=== PATIENT | male | born 1985 | race Caucasian/White ===

== ENCOUNTER 2017-11-20 17:50 | Inpatient (IN) | payer BC, OTHER, SELFPAY ==
[2017-11-20 18:25] VITALS: BP 121/88; PULSE 100; RESP 18; TEMP 36.7; O2SAT 100; BMI 32.7; BMI 32.8
[2017-11-20 19:29] VITALS: BP 124/66; PULSE 101; RESP 16; TEMP 36.7; O2SAT 98
[2017-11-20] MEDS: oxyCODONE 5 MG Tablet PO (20:51)
[2017-11-20] MEDS: Acetaminophen 325 MG Tablet 650 MG PO (21:53)
[2017-11-20] MEDS: DiphenhydrAMINE 12.5 MG/5 ML UDC PO (22:14)
[2017-11-20] MEDS: Chlorhexidine 480 ML 15 ML PO (22:14)
[2017-11-20] MEDS: Gabapentin 100 MG Capsule PO (22:14)
[2017-11-20] MEDS: Methocarbamol 500 MG Tablet 1000 MG PO (22:15)
[2017-11-21] MEDS: oxyCODONE 5 MG Tablet PO ×3 (03:55→17:16)
--- NOTE | 2017-11-21 04:16 | NURSING ---
O2 saturation checked d/t pt report of sleep apnea. O2 at 96%. Pain at 8/10 and Oxyir 5mg PRN provided. Leg repositioned.
[2017-11-21] MEDS: Gabapentin 100 MG Capsule PO ×3 (05:32→20:49)
[2017-11-21] MEDS: Acetaminophen 325 MG Tablet 650 MG PO (05:32)
[2017-11-21] MEDS: DiphenhydrAMINE 12.5 MG/5 ML UDC PO ×2 (05:48→22:07)
--- NOTE | 2017-11-21 05:51 | NURSING ---
pt given liquid benadryl PRN for itching.
[2017-11-21 06:09] LABS: Hematocrit 33.4 % (40-54); Hemoglobin 10.6 g/dl (13.0-16.5); Mean Corp Hgb Conc 31.7 g/gl (32-36); Mean Corpuscular Hgb 30.7 pg (27.0-32.0); Mean Corpuscular Volume 96.8 fL (80-94); Mean Platelet Vol. 9.7 fl (6.2-12.0); Platelet Count 590 K/mm3 (150-450); RBC Distribution Width CV 15.2 % (11.6-14.6); RBC Distribution Width SD 50.7 fl (35.1-43.9); Red Blood Count 3.45 M/mm3 (4.6-6.2); Scan Indicated on CBC? Y/N NO; White Blood Count 11.9 K/mm3 (4.4-11.0)
[2017-11-21 06:32] LABS: Anion Gap 8 (5-15); BUN 16 mg/dL (7-18); BUN/Creat Ratio 26.7 RATIO (10-20); Calcium,Total 9.1 mg/dL (8.5-10.1); Chloride 106 mmol/L (98-107); EST Glomerular Filtration Rate 164 mL/min (>60); Est Glom Filt Rate - Afr Amer 199 mL/min (>60); Estimated Creatinine Clearance 186.51 ml/min; Glucose 104 mg/dL (74-106); Sodium Level 139 mmol/L (136-145)
[2017-11-21] MEDS: Chlorhexidine 480 ML 15 ML PO ×4 (08:36→20:50)
[2017-11-21 08:46] VITALS: BP 140/81; PULSE 104; RESP 18; TEMP 36.6; O2SAT 96
[2017-11-21] MEDS: fentaNYL 25 MCG Patch TRANSDERM. (10:13)
[2017-11-21] MEDS: Enoxaparin 40 MG/0.4 ML Syringe SC (10:15)
[2017-11-21] MEDS: Methocarbamol 500 MG Tablet 1000 MG PO ×4 (10:25→20:51)
[2017-11-21] MEDS: amLODIPine 10 MG Tablet PO (10:25)
[2017-11-21] MEDS: Lisinopril 40 MG Tablet PO (10:25)
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
--- NOTE | 2017-11-21 13:43 | REHABEVAL_ITS ---
Admission Information Status Changes from Prescreening?: No changes Identified Actual Problem List:: Mobility Impaired, Self Care Deficit, BP, Hypertension Potential Problem List:: DVT, Bleeding, Infection, UTI, Aspiration, Falls, Skin Integrity, Depression Risk of Complications DVT: LMWH, LADARIUS Hose, Sequential Compression Device Bleeding: Monitor Lab Values, Nursing to Teach Precautions for anti-coagulation therapy., Wound, if applicable, to be assessed every shift., Stroke patients assessed for lethargy or change in status. Infection: Clinical Staff to Monitor for S/S of infection:, S/S of infection include fever, redness, warmth, etc. Urinary Tract Infection: Monitor for frequency, burning, discomfort, or incontinence., Nursing will obtain urine sample for urinalysis and C&S when ordered. Aspiration: Clinical staff will monitor for coughing, drooling, congestion., Speech will evaluate swallowing and dsyphasia., Nursing will monitor patient swallowing during meals. Falls: Patient will be evaluated for Fall Precautions, Patient will be placed on Fall Precautions as indicated per protocol. Skin Breakdown: Nursing will assess skin daily using assessment tool., Nursing will place on Skin Breakdown Precautions as indicated. Pain: Clinical staff will assess patient's pain level per protocol., Medications will be given, if needed, and the pain level reassessed., Other methods: Massage, distraction, decrease stimulus, etc. used PRN. Plan of Care Patient requires physician specializing in physical medicine and rehab oversight to provide close medical supervision of rehab issues including: Pain Management, Sleep Problems, Bowel and Bladder, Medical and co-morbidity Management, DVT prophylaxis, Rehabilitation Leadership, Coordination of treatment team Patient needs Physical Therapy: For a minimum of 1 hour, At least 5 out of 7 days Patient needs Physical Therapy to improve:: Mobility, Mobility, Mobility, Strengthening, Transfers, Stretching, ROM, Endurance, Stairs, Gait, Balance Patient needs Occupational Therapy: For a minimum of 1 hour, At least 5 out of 7 days Patient needs Occupational Therapy to improve ADL's incl.: Eating, Grooming, Bathing, Dressing, Toileting, Toilet transfers, Community Reintegration, Higher functioning activities, Household tasks, Adaptive Equipment, Splinting, Other activities as determined Patient requires speech therapy: For a minimum of 1 hour, At least 5 out of 7 days Patient requires speech therapy for: Swallowing, Cognition, Language Skills, Compensatory Strategies Patient requires 04/02 Rehabilitation Nursing for: Pain Issues, Identifying and preventing risk factors, Monitoring and reporting current medical conditions, Assisting with ambulation, transfer, and all ADL's, Teaching patients about disease process and medications, Family teaching, Providing safe environment, Bowel and Bladder Issues, Skin integrity, Medication Management Patient needs Certified Substance Abuse Counselor/ Case Management for: Discharge Planning, Arranging Home Equipment or Services, Family Interventions Patient needs Dietary and Nutrition Services for: Adequate Nutrition, Nutritional Supplements, Nutritional Education Goals Patient will remain: free from falls, or injury at time of discharge. Patient will perform bed mobility at: MOD I level of assist. Patient will complete transfers from bed to chair at: MOD I level of assist. Patient will ambulate: 100 feet, with MOD I assist, with LRD Patient will complete upper body dressing at: MOD I level of assist. Patient will complete lower body dressing at: MOD I level of assist. Patient will complete toileting at: MOD I level of assist. Patient will perform bathing at: MOD I level of assist. Patient will complete grooming at: MOD I level of assist. Patient will complete home management skills at: MOD I level of assist. Patient will achieve: 12 stairs, at MOD I assist Patient will have pain level of: of 3 or less Patient's skin will: remain intact, free from infection. Patient will receive: adequate nutrition. Discharge Planning Pt Prognosis for Sig. Practical Improv. w/in Reasonable Time: Good Estimated Length of stay (days): 21 Anticipated D/C Destination: Home with Outpt Therapy
[2017-11-21] MEDS: Acetaminophen 650 MG/20 ML UDC PO ×2 (14:20→20:52)
--- NOTE | 2017-11-21 16:23 | CASEMGMT ---
Social Work Assessment completed with patient in room. Patient presenting with a positive affect as could be seen by patient engaging in conversation with this psych social worker and smiling often. Patient reporting to be and to have 3 children. Patient has been to spouse for 8 years and has 3 daughters that are names, Cheyenne (age 5), Kerrie (age 4) and Ute (3 months). Patent reporting that patient spouse, Ana is a elementary summer school teacher and is currently coming to the end of Ana's [facility] and may need to go back to work for a few weeks until summer break. Patient reporting to be planning to return home with spouse and family at time of discharge and is planning to discharge home at a wheelchair level. Patient reporting to be able to have a ramp set up and then patient would have a space for a bed (probably a hospital bed) and a full bathroom on the first floor. Patient aware that it is undetermined patient current length of stay at this time. Patient educated on insurance process and aware that an update is due on 11/22/17. Support given. Patient declining for this psych social worker to contact patient spouse at this time and reporting to be able to communicate team meeting time and date to patient spouse. Will continue to follow. Adelaida JUNIOR, MASTER DATA ANALYST
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
[2017-11-21 21:00] VITALS: BP 160/84; PULSE 105; RESP 18; TEMP 36.6; O2SAT 98
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
--- NOTE | 2017-11-22 02:57 | NURSING ---
Reviewed and agree with MACHINE TOOL BUILDER documentation and FIMS charting
[2017-11-22] MEDS: oxyCODONE 5 MG Tablet PO ×3 (03:37→23:03)
[2017-11-22] MEDS: Enoxaparin 40 MG/0.4 ML Syringe SC (06:37)
[2017-11-22] MEDS: Gabapentin 100 MG Capsule PO ×3 (06:38→21:05)
[2017-11-22] MEDS: Acetaminophen 650 MG/20 ML UDC PO ×3 (06:38→21:06)
[2017-11-22] MEDS: Chlorhexidine 480 ML 15 ML PO ×4 (07:49→21:05)
[2017-11-22] MEDS: Lisinopril 40 MG Tablet PO (07:49)
[2017-11-22] MEDS: amLODIPine 10 MG Tablet PO (07:49)
[2017-11-22 08:15] VITALS: BP 145/83; PULSE 101; RESP 18; TEMP 36.4; O2SAT 98
[2017-11-22] MEDS: Methocarbamol 500 MG Tablet 1000 MG PO ×4 (11:04→21:06)
--- NOTE | 2017-11-22 11:25 | CASEMGMT ---
Insurance Clinical information faxed. Pending continued stay approval at this time. Auth# waiting to obtain. Adelaida JUNIOR, CLIENT SUCCESS SPECIALIST
[2017-11-22] MEDS: DiphenhydrAMINE 12.5 MG/5 ML UDC PO (21:22)
[2017-11-22 21:57] VITALS: BP 125/72; PULSE 103; RESP 18; TEMP 36.7; O2SAT 99
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
--- NOTE | 2017-11-23 02:15 | NURSING ---
Reviewed and agree with LPNs fims and handoff
[2017-11-23] MEDS: oxyCODONE 5 MG Tablet PO ×3 (03:11→23:32)
[2017-11-23] MEDS: Enoxaparin 40 MG/0.4 ML Syringe SC (06:42)
[2017-11-23] MEDS: Gabapentin 100 MG Capsule PO ×3 (06:42→21:56)
[2017-11-23] MEDS: Acetaminophen 650 MG/20 ML UDC PO ×3 (06:43→21:55)
[2017-11-23 07:28] VITALS: O2SAT 97
[2017-11-23 08:15] VITALS: BP 141/74; PULSE 112; RESP 18; TEMP 36.6; O2SAT 96
[2017-11-23] MEDS: Chlorhexidine 480 ML 15 ML PO ×4 (08:20→21:56)
[2017-11-23] MEDS: amLODIPine 10 MG Tablet PO (08:21)
[2017-11-23] MEDS: Methocarbamol 500 MG Tablet 1000 MG PO ×4 (08:21→21:56)
[2017-11-23] MEDS: Lisinopril 40 MG Tablet PO (08:21)
[2017-11-23] MEDS: Ferrous Sulfate 300 MG/5 ML UDC PO ×2 (08:21→17:18)
[2017-11-23 10:00] VITALS: PULSE 106
[2017-11-23] MEDS: DiphenhydrAMINE 12.5 MG/5 ML UDC PO ×2 (11:11→16:25)
--- NOTE | 2017-11-23 18:35 | NURSING ---
duragesic patch intact to left arm.
[2017-11-23 19:55] VITALS: BP 133/69; PULSE 90; RESP 18; TEMP 36.6; O2SAT 98
[2017-11-24] MEDS: DiphenhydrAMINE 12.5 MG/5 ML UDC PO ×2 (00:36→16:17)
[2017-11-24] MEDS: Acetaminophen 650 MG/20 ML UDC PO ×3 (05:24→21:54)
[2017-11-24] MEDS: oxyCODONE 5 MG Tablet PO ×5 (05:26→23:40)
[2017-11-24] MEDS: Enoxaparin 40 MG/0.4 ML Syringe SC (05:26)
[2017-11-24] MEDS: Gabapentin 100 MG Capsule PO ×3 (05:26→21:55)
[2017-11-24 09:00] VITALS: BP 124/80; PULSE 90; RESP 17; TEMP 36.7; O2SAT 96
[2017-11-24] MEDS: Lisinopril 40 MG Tablet PO (09:06)
[2017-11-24] MEDS: Chlorhexidine 480 ML 15 ML PO ×4 (09:07→21:54)
[2017-11-24] MEDS: amLODIPine 10 MG Tablet PO (09:07)
[2017-11-24] MEDS: Methocarbamol 500 MG Tablet 1000 MG PO ×4 (09:07→21:55)
[2017-11-24] MEDS: Ferrous Sulfate 300 MG/5 ML UDC PO (16:36)
[2017-11-24 19:38] VITALS: BP 112/61; PULSE 105; RESP 12; TEMP 37.1; O2SAT 98
[2017-11-25] MEDS: DiphenhydrAMINE 12.5 MG/5 ML UDC PO ×2 (00:51→09:35)
--- NOTE | 2017-11-25 02:27 | NURSING ---
REVIEWED AND AGREE WITH MUCKER COFFERDAM'S FIM AND HANDOFF CHARTING.
[2017-11-25] MEDS: oxyCODONE 5 MG Tablet PO ×5 (04:16→23:06)
[2017-11-25] MEDS: Enoxaparin 40 MG/0.4 ML Syringe SC (06:15)
[2017-11-25] MEDS: Acetaminophen 650 MG/20 ML UDC PO ×3 (06:15→21:03)
[2017-11-25] MEDS: Gabapentin 100 MG Capsule PO ×3 (06:16→21:03)
[2017-11-25 07:25] VITALS: BP 138/76; PULSE 100; RESP 12; TEMP 36.7; O2SAT 95
[2017-11-25] MEDS: Chlorhexidine 480 ML 15 ML PO ×3 (07:44→17:34)
[2017-11-25] MEDS: Ferrous Sulfate 300 MG/5 ML UDC PO ×2 (07:44→17:31)
[2017-11-25] MEDS: Methocarbamol 500 MG Tablet 1000 MG PO ×4 (07:45→21:03)
[2017-11-25] MEDS: Lisinopril 40 MG Tablet PO (07:45)
[2017-11-25] MEDS: amLODIPine 10 MG Tablet PO (07:45)
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
--- NOTE | 2017-11-25 10:14 | NURSING ---
Dr. Ceron office called to set up appt, left message to return call at their office.
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
--- NOTE | 2017-11-25 10:45 | NURSING ---
patient has appt with dr mackey on 12/11 at 215 left message with nurse to see if dr mackey wanted to see patient earlier than 12/11
--- NOTE | 2017-11-25 10:46 | CASEMGMT ---
Team meeting held. Patient present as well as patient spouse, Ana. No discharge date set at this time. Patient to continue with further care and treatment on the Inpatient Rehab Unit. Patient does plans to discharge home with spouse at time of discharge. Patient planning to begin working on setting up a ramp at patient's home as patient will be at a wheelchair level at discharge and has multiple stairs to enter the split level home. Patient reporting to be able to have a 1st floor set up with the assistance of the ramp, wheelchair, and a hospital bed. This social services to set up needed equipment at time of discharge. Patient currently pending insurance approval. Support given. Will continue to follow. Adelaida JUNIOR, SENIOR EXAMINER
--- NOTE | 2017-11-25 13:14 | CASEMGMT ---
Insurance Continued stay approved with next update due on 11/29/17. LCD: 11/29/17. Auth#[id number] Adelaida JUNIOR, MID LEVEL PROVIDER
--- NOTE | 2017-11-25 13:49 | NURSING ---
dr mackey office returned call no openings prior to 12/11. dr best office returned call appt for 11/29 @ 1030. and patient aware and transportation set up.
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
[2017-11-25 19:35] VITALS: BP 118/63; PULSE 110; RESP 18; TEMP 37; O2SAT 98
[2017-11-25 21:00] VITALS: PULSE 110
[2017-11-26] MEDS: DiphenhydrAMINE 12.5 MG/5 ML UDC PO ×3 (00:19→21:05)
--- NOTE | 2017-11-26 01:19 | NURSING ---
Reviewed and agree with ELECTRO PLATER documentation and FIMS charting.
[2017-11-26] MEDS: oxyCODONE 5 MG Tablet PO ×5 (03:39→23:18)
[2017-11-26] MEDS: Enoxaparin 40 MG/0.4 ML Syringe SC (06:07)
[2017-11-26] MEDS: Acetaminophen 650 MG/20 ML UDC PO ×3 (06:07→21:06)
[2017-11-26] MEDS: Gabapentin 100 MG Capsule PO ×3 (06:07→21:06)
[2017-11-26 07:11] VITALS: BP 108/66; PULSE 102; RESP 17; TEMP 36.6; O2SAT 94
[2017-11-26] MEDS: Ferrous Sulfate 300 MG/5 ML UDC PO ×2 (07:55→16:57)
[2017-11-26] MEDS: Lisinopril 40 MG Tablet PO (07:56)
[2017-11-26] MEDS: Senna/Docusate Sodium 1 Tablet 2 TABLET PO ×2 (07:56→21:05)
[2017-11-26] MEDS: amLODIPine 10 MG Tablet PO (07:57)
[2017-11-26] MEDS: Chlorhexidine 480 ML 15 ML PO ×4 (07:57→21:06)
[2017-11-26] MEDS: Methocarbamol 500 MG Tablet 1000 MG PO ×4 (07:57→21:05)
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
[2017-11-26 20:40] VITALS: BP 104/56; PULSE 100; RESP 17; TEMP 36.4; O2SAT 98
[2017-11-26 22:00] VITALS: PULSE 100
[2017-11-27] MEDS: oxyCODONE 5 MG Tablet PO ×3 (04:34→17:30)
--- NOTE | 2017-11-27 04:41 | NURSING ---
Pt c/o pain of 8/10 in jaw. Oxyir 10mg provided.
[2017-11-27] MEDS: DiphenhydrAMINE 12.5 MG/5 ML UDC PO (06:39)
[2017-11-27] MEDS: Enoxaparin 40 MG/0.4 ML Syringe SC (06:39)
[2017-11-27] MEDS: Gabapentin 100 MG Capsule PO ×3 (06:40→21:01)
[2017-11-27] MEDS: Acetaminophen 650 MG/20 ML UDC PO ×3 (06:40→20:58)
[2017-11-27] MEDS: Ferrous Sulfate 300 MG/5 ML UDC PO ×2 (07:56→17:30)
[2017-11-27] MEDS: Chlorhexidine 480 ML 15 ML PO ×4 (07:56→21:00)
[2017-11-27 07:58] VITALS: BP 133/81; PULSE 100; RESP 18; TEMP 36.7; O2SAT 100
[2017-11-27] MEDS: amLODIPine 10 MG Tablet PO (10:56)
[2017-11-27] MEDS: Methocarbamol 500 MG Tablet 1000 MG PO ×4 (10:56→21:00)
[2017-11-27] MEDS: Lisinopril 40 MG Tablet PO (10:56)
[2017-11-27] MEDS: Senna/Docusate Sodium 1 Tablet 2 TABLET PO ×2 (10:56→20:59)
[2017-11-27 21:09] VITALS: BP 116/70; PULSE 99; RESP 16; TEMP 36.4; O2SAT 99
[2017-11-28] MEDS: oxyCODONE 5 MG Tablet PO ×5 (00:20→23:37)
[2017-11-28] MEDS: Gabapentin 100 MG Capsule PO ×3 (06:13→20:54)
[2017-11-28] MEDS: Acetaminophen 650 MG/20 ML UDC PO ×3 (06:13→20:54)
[2017-11-28] MEDS: Enoxaparin 40 MG/0.4 ML Syringe SC (06:14)
[2017-11-28] MEDS: Chlorhexidine 480 ML 15 ML PO ×4 (07:19→20:56)
[2017-11-28] MEDS: Ferrous Sulfate 300 MG/5 ML UDC PO ×2 (07:20→16:15)
[2017-11-28 08:47] VITALS: BP 131/75; PULSE 96; RESP 12; TEMP 36.4; O2SAT 98
[2017-11-28] MEDS: Lisinopril 40 MG Tablet PO (11:06)
[2017-11-28] MEDS: Senna/Docusate Sodium 1 Tablet 2 TABLET PO ×2 (11:06→20:55)
[2017-11-28] MEDS: amLODIPine 10 MG Tablet PO (11:06)
[2017-11-28] MEDS: Methocarbamol 500 MG Tablet 1000 MG PO ×4 (11:06→20:55)
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
[2017-11-28 20:48] VITALS: BP 139/80; PULSE 105; RESP 16; TEMP 36.8; O2SAT 100
[2017-11-28] MEDS: DiphenhydrAMINE 12.5 MG/5 ML UDC PO (22:10)
[2017-11-29] MEDS: Enoxaparin 40 MG/0.4 ML Syringe SC (05:04)
[2017-11-29] MEDS: Gabapentin 100 MG Capsule PO ×3 (05:04→20:34)
[2017-11-29] MEDS: oxyCODONE 5 MG Tablet PO ×3 (05:05→16:00)
[2017-11-29] MEDS: Acetaminophen 650 MG/20 ML UDC PO ×3 (06:12→20:37)
[2017-11-29 07:40] VITALS: BP 126/68; PULSE 93; RESP 16; TEMP 36.7; O2SAT 99
[2017-11-29] MEDS: Methocarbamol 500 MG Tablet 1000 MG PO ×4 (08:57→20:34)
[2017-11-29] MEDS: Ferrous Sulfate 300 MG/5 ML UDC PO ×2 (08:57→16:01)
[2017-11-29] MEDS: amLODIPine 10 MG Tablet PO (08:57)
[2017-11-29] MEDS: Senna/Docusate Sodium 1 Tablet 2 TABLET PO ×2 (08:58→20:34)
[2017-11-29] MEDS: Lisinopril 40 MG Tablet PO (08:58)
[2017-11-29] MEDS: Chlorhexidine 480 ML 15 ML PO ×4 (08:59→20:33)
[2017-11-29] MEDS: DiphenhydrAMINE 12.5 MG/5 ML UDC PO ×2 (10:04→20:47)
--- NOTE | 2017-11-29 11:35 | CASEMGMT ---
Insurance Clinical information sent. Pending continued stay approval at this time. Auth#[id number] Adelaida JUNIOR, LIAISON INSPECTION LABORATORY ASSISTANT
--- NOTE | 2017-11-29 11:36 | CASEMGMT ---
Social Work Collaborating with team. Patient is going to need a single drive wheelchair (right side), Beasy board, 3-in-1 bedsie commode with drop arms, and a high low hospital bed. Patient is reporting to have no preference of where equipment is order from. [facility] to be utilized. Patient aware that it is possible that not all equipment will be covered. Patient family currently working on also setting up a ramp. Support given. Orders for above mentioned equipment faxed to [facility] as Olya is reporting that an order is needed in order to obtain the equipment. Will update Olya on discharge date when one is set and then equipment will be delivered. Will continue to follow. Adelaida JUNIOR, [employer]
[2017-11-29 20:31] VITALS: BP 120/77; PULSE 86; RESP 16; TEMP 36.7; O2SAT 95
[2017-11-30] MEDS: oxyCODONE 5 MG Tablet PO ×5 (01:08→23:19)
[2017-11-30] MEDS: Acetaminophen 650 MG/20 ML UDC PO ×3 (05:21→21:32)
[2017-11-30] MEDS: Enoxaparin 40 MG/0.4 ML Syringe SC (05:22)
[2017-11-30] MEDS: Gabapentin 100 MG Capsule PO ×3 (05:22→21:31)
[2017-11-30] MEDS: DiphenhydrAMINE 12.5 MG/5 ML UDC PO ×2 (05:27→21:32)
[2017-11-30 07:47] VITALS: BP 115/76; PULSE 87; RESP 17; TEMP 36.4; O2SAT 98
[2017-11-30] MEDS: Lisinopril 40 MG Tablet PO (08:57)
[2017-11-30] MEDS: Ferrous Sulfate 300 MG/5 ML UDC PO ×2 (08:57→16:26)
[2017-11-30] MEDS: Methocarbamol 500 MG Tablet 1000 MG PO ×4 (08:57→21:31)
[2017-11-30] MEDS: amLODIPine 10 MG Tablet PO (08:57)
[2017-11-30] MEDS: Senna/Docusate Sodium 1 Tablet 2 TABLET PO ×2 (08:57→21:31)
[2017-11-30] MEDS: Chlorhexidine 480 ML 15 ML PO ×4 (08:58→21:31)
--- NOTE | 2017-11-30 21:48 | NURSING ---
Hospitalist, Dr. Reyes, was paged re: Robaxin refill needed. N/O for renewal of Robaxin 1,000mg QID placed.
[2017-11-30 22:00] VITALS: BP 131/68; PULSE 89; RESP 18; TEMP 36.7; O2SAT 99
[2017-12-01] MEDS: oxyCODONE 5 MG Tablet PO ×2 (03:20→14:53)
[2017-12-01] MEDS: Enoxaparin 40 MG/0.4 ML Syringe SC (06:40)
[2017-12-01] MEDS: Gabapentin 100 MG Capsule PO ×3 (06:40→21:44)
[2017-12-01] MEDS: Acetaminophen 650 MG/20 ML UDC PO ×3 (06:41→21:43)
[2017-12-01 07:20] VITALS: BP 120/71; PULSE 94; RESP 17; TEMP 36.5; O2SAT 96
[2017-12-01] MEDS: Ferrous Sulfate 300 MG/5 ML UDC PO ×2 (08:07→17:09)
[2017-12-01] MEDS: Senna/Docusate Sodium 1 Tablet 2 TABLET PO ×2 (08:07→21:44)
[2017-12-01] MEDS: Chlorhexidine 480 ML 15 ML PO ×4 (08:09→21:42)
[2017-12-01] MEDS: Lisinopril 40 MG Tablet PO (08:09)
[2017-12-01] MEDS: amLODIPine 10 MG Tablet PO (08:09)
[2017-12-01] MEDS: Methocarbamol 500 MG Tablet 1000 MG PO ×4 (08:09→21:44)
--- NOTE | 2017-12-01 15:50 | PCA ---
Addendum entered by Leoncio Barbosa 12/01/17 17:19: Minimal drainage noted Original Note: While patient was scratching the back of his head the scab that was there from a previous wound came off. Nurse notified
--- NOTE | 2017-12-01 17:20 | PCA ---
Patient up in chair for dinner
[2017-12-01 19:50] VITALS: BP 123/63; PULSE 97; RESP 16; TEMP 36.7; O2SAT 96
--- NOTE | 2017-12-02 01:56 | NURSING ---
Reviewed and agree with [employer] documentation.
[2017-12-02] MEDS: oxyCODONE 5 MG Tablet PO ×3 (02:44→15:13)
[2017-12-02] MEDS: Acetaminophen 650 MG/20 ML UDC PO ×3 (06:20→22:35)
[2017-12-02] MEDS: Enoxaparin 40 MG/0.4 ML Syringe SC (06:21)
[2017-12-02] MEDS: Gabapentin 100 MG Capsule PO ×3 (06:21→22:36)
[2017-12-02 07:25] VITALS: BP 125/76; PULSE 99; RESP 17; TEMP 36.4; O2SAT 96
[2017-12-02] MEDS: Ferrous Sulfate 300 MG/5 ML UDC PO ×2 (08:54→17:45)
[2017-12-02] MEDS: Senna/Docusate Sodium 1 Tablet 2 TABLET PO ×2 (08:54→22:36)
[2017-12-02] MEDS: Methocarbamol 500 MG Tablet 1000 MG PO ×4 (08:54→22:36)
[2017-12-02] MEDS: Chlorhexidine 480 ML 15 ML PO ×4 (08:54→22:36)
[2017-12-02] MEDS: Lisinopril 40 MG Tablet PO (08:54)
[2017-12-02] MEDS: amLODIPine 10 MG Tablet PO (08:54)
--- NOTE | 2017-12-02 10:47 | PN.NEURO_ITS ---
Subjective: Staffed in team meeting. at bedside. Questions answered. With Physical therapy, he is stand by assist for bed transfers, he is able to use a transfer board to assist him. He has anti gravity strength in his left knee and leg, and his right leg is improving and getting stronger. With Occupational therapy he is stand by to contact guard using the transfer board to get onto and off the toilet. He requires minimal assistance for lower body care and stand by assistance to get his shirt on and off. He is able to do most of his personal care using his right hand and minimal care using his left hand. With Nursing his pain is well controlled on his current medications. The plan is discharge home on Saturday with home Physical therapy and Occupational therapy. - Physical Exam General: Alert, Oriented x3, Cooperative HEENT: Atraumatic, PERRLA, EOMI, Normocephalic Neck: Supple, No JVD, Negative Carotid Bruits Lungs: Clear to auscultation, Normal air movement Cardiovascular: Regular rate, No murmurs Abdomen: Bowel Sounds Present, Soft, Non Tender Extremities: No edema, Capillary Refill Less than 3 Seconds Skin: No rashes, No breakdown Musculoskeletal: No Tenderness to Palpation of Joints or Extremities Neurological: Cranial nerves II-XII grossly intact Psych/Mental Status: Normal Affect, Appropriate, Alert and oriented to time, place, person, mood and affect Vital Signs Temp Pulse Resp BP Pulse Ox 97.5 F L 99 17 125/76 H 96 12/02/17 07:25 12/02/17 07:25 12/02/17 07:25 12/02/17 07:25 12/02/17 07:25 Oxygen Delivery Method Room Air Weight: 101.151 kg Body Mass Index (BMI) 32.8 Intake and Output for Last 24 Hours 11/30/17 12/01/17 12/02/17 23:59 23:59 23:59 Intake Total 420 / 420 935 / 935 460 / 460 Balance 420 / 420 935 / 935 460 / 460 Active Medications Acetaminophen (Tylenol Liquid) 650 mg PO Q8H [facility] Last Admin: 12/02/17 06:20 Dose: 650 mg Albuterol/Ipratropium (Duoneb) 3 ml INHALATION Q4H PRN PRN PRN Reason: SHORTNESS OF BREATH Amlodipine Besylate (Norvasc) 10 mg PO DAILY [facility] Last Admin: 12/02/17 08:54 Dose: 10 mg Bisacodyl (Dulcolax) 10 mg RECTAL .PRN X 1 PRN PRN Reason: Constipation Chlorhexidine [facility]) [facility]: 12/04/17 22:01 Last Admin: 12/02/17 08:54 Dose: 15 ml Diphenhydramine HCl (Benadryl Liquid) 12.5 mg PO TID PRN PRN PRN Reason: itching relief Last Admin: 11/30/17 21:32 Dose: 12.5 mg Emollient Ointment (Eucerin Intensive Repair) 1 applic TOPICAL 4X/DAY PRN PRN; Protocol PRN Reason: dryness/itching Last Admin: 11/29/17 20:35 Dose: 1 applicatio Enoxaparin Sodium (Lovenox) 40 mg SC DAILY@0600 [facility] Last Admin: 12/02/17 06:21 Dose: 40 mg Fentanyl (Duragesic Patch) 50 mcg TRANSDERM. Q72H [facility] Last Admin: 12/01/17 13:03 Dose: 50 mcg Ferrous Sulfate ([facility]ate Syrup) [facility] Last Admin: 12/02/17 08:54 Dose: 300 mg Gabapentin (Neurontin) 100 mg PO TID [facility] Last Admin: 12/02/17 06:21 Dose: 100 mg Lisinopril (Zestril) 40 mg PO DAILY [facility] Last Admin: 12/02/17 08:54 Dose: 40 mg Magnesium Hydroxide (Milk Of Magnesia) 30 ml PO .PRN X 1 PRN PRN Reason: Constipation Methocarbamol (Robaxin) 1,000 mg PO 4X/DAY [facility] Last Admin: 12/02/17 08:54 Dose: 1,000 mg Nutritional Formula (Segundo - [place] Flavor) [facility] Last Admin: 12/02/17 08:53 Dose: 1 packet Nutritional Formula (Lactose Free) (Ensure Clear) 120 ml PO 4X/DAY [facility] Last Admin: 12/02/17 08:56 Dose: 120 ml Oxycodone HCl (Oxyir) 5 - 10 mg PO Q4H PRN PRN PRN Reason: SEVERE PAIN (6-10/10) Last Admin: 12/02/17 09:00 Dose: 10 mg Senna/Docusate Sodium (Senokot-S, Kim-Colace) 2 tablet PO BID [facility] Last Admin: 12/02/17 08:54 Dose: 1 tablet Medical Necessity - Tobacco Use Smoking Status: Former smoker Tobacco Use: Cigarettes Assessment/Plan Debility status post multiple fractures and surgical repair. Goal of rehab is restorationist of prior level of functional independence. Plan: - Physical therapy for gait and balance - Occupational Therapy for ADLs - As needed analgesics - Bowel protocol - DVT prophylaxis: Lovenox - HTN - stable => continue home medications of lisinopril and Norvasc - B/L Incision sites => C/D/I, => healing nicely, vanessa intact, no drainage noted, no redness or warmth noted around incision areas. Scheduled to follow- up with Dr. Cortés from orthopedics this week on Saturday. - Jaw wired closed => wire cutters at bedside, Peridex QID, diet up grade to pureed liquid diet, with thin liquids. - Tobacco dependence counseled on cessation, offered nicotine patch for tobacco cravings -> patient refused - Muscle spasms and cramping -> continue GPN, and Robaxin - Wound healing -> start Segundo with meals - Obesity, BMI is 32.1, encourage weight loss - Make appointments with Plastic surgery concerning wired jaw 11/26/17: Scheduled follow-up with plastics on the of this month. - Vanesas and Sutures were removed from all incision sites this pass Saturday => areas are well approximated - Plan is for discharge on SaturdayDecember 07, with Home physical therapy and Occupational therapy - Will plan on having the come in for shared visit in the next day or two.
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
[2017-12-02 20:11] VITALS: BP 106/59; PULSE 95; RESP 17; TEMP 36.3; O2SAT 100
[2017-12-03] MEDS: oxyCODONE 5 MG Tablet PO ×2 (04:42→16:52)
[2017-12-03] MEDS: Gabapentin 100 MG Capsule PO ×3 (06:18→21:03)
[2017-12-03] MEDS: Acetaminophen 650 MG/20 ML UDC PO ×3 (06:18→21:01)
[2017-12-03] MEDS: Enoxaparin 40 MG/0.4 ML Syringe SC (06:19)
[2017-12-03 07:35] VITALS: BP 133/83; PULSE 103; RESP 16; TEMP 36.4; O2SAT 97
[2017-12-03] MEDS: Ferrous Sulfate 300 MG/5 ML UDC PO ×2 (08:38→16:46)
[2017-12-03] MEDS: Chlorhexidine 480 ML 15 ML PO ×4 (08:40→21:02)
[2017-12-03] MEDS: Methocarbamol 500 MG Tablet 1000 MG PO ×4 (08:45→21:02)
[2017-12-03] MEDS: Senna/Docusate Sodium 1 Tablet 2 TABLET PO ×2 (08:45→21:02)
[2017-12-03] MEDS: Lisinopril 40 MG Tablet PO (08:45)
[2017-12-03] MEDS: amLODIPine 10 MG Tablet PO (08:46)
--- NOTE | 2017-12-03 16:00 | CASEMGMT ---
Social Work Telephone call to [facility] to follow up on equipment order. Olya reporting to not have a high/low bed and that this would not be covered by insurance. Olya reporting to have the 3-in-1 bedside commode with drop arm and wheelchair with single drive along with articulating leg rest and removable arm rest. Olya reporting to not have a Beasy board and to not carry these in stock. Spoke with resident in room in regards to equipment. Team reporting that resident now no longer requires a high/low hospital bed and a standard hospital bed would be fine. Resident planning to order the Beasy board on [employer] and will have 2day shipping. All equipment will be delivered to resident room or home address on Saturday. Telephone call back to Olya to communicate that a standard hospital bed is sufficient, Olya reporting that this bed would be covered by insurance. Proposed discharge date: 12/07/17 PLAN: Discharge home with spouse. Will continue to follow with further discharge planning and support. Adelaida JUNIOR, VIRTUAL ASSISTANT FOR [employer]
[2017-12-03 20:32] VITALS: BP 118/70; PULSE 84; RESP 12; TEMP 36.6; O2SAT 99
[2017-12-04] MEDS: oxyCODONE 5 MG Tablet PO ×3 (04:14→23:32)
[2017-12-04] MEDS: Acetaminophen 650 MG/20 ML UDC PO ×3 (06:11→20:22)
[2017-12-04] MEDS: Gabapentin 100 MG Capsule PO ×3 (06:12→20:20)
[2017-12-04] MEDS: Enoxaparin 40 MG/0.4 ML Syringe SC (06:12)
[2017-12-04 07:41] VITALS: BP 123/74; PULSE 91; RESP 12; TEMP 36.4; O2SAT 100
[2017-12-04] MEDS: Chlorhexidine 480 ML 15 ML PO ×4 (08:44→20:21)
[2017-12-04] MEDS: Ferrous Sulfate 300 MG/5 ML UDC PO ×2 (08:46→17:34)
[2017-12-04] MEDS: Lisinopril 40 MG Tablet PO (08:47)
[2017-12-04] MEDS: Methocarbamol 500 MG Tablet 1000 MG PO ×4 (08:48→20:21)
[2017-12-04] MEDS: Senna/Docusate Sodium 1 Tablet 2 TABLET PO ×2 (08:48→20:21)
[2017-12-04] MEDS: amLODIPine 10 MG Tablet PO (08:48)
--- NOTE | 2017-12-04 10:17 | PCM.PN.NEU ---
Subjective: Patient seen during therapy session. No acute events over night. Tolerating therapy. Denies any shortness of breath, or chest pains. Multiple Incision sites are C/D/I, well approximated and healing nicely. His mouth is still wired closed, tolerating liquid diet, no issues with . - Physical Exam General: Alert, Oriented x3, Cooperative HEENT: Atraumatic, PERRLA, EOMI, Normocephalic Neck: Supple, No JVD, Negative Carotid Bruits Lungs: Clear to auscultation, Normal air movement Cardiovascular: Regular rate, No murmurs Abdomen: Bowel Sounds Present, Soft, Non Tender Extremities: No edema, Capillary Refill Less than 3 Seconds Skin: No rashes, No breakdown Musculoskeletal: No Tenderness to Palpation of Joints or Extremities Neurological: Cranial nerves II-XII grossly intact Psych/Mental Status: Normal Affect, Appropriate, Alert and oriented to time, place, person, mood and affect Vital Signs Temp Pulse Resp BP Pulse Ox 97.5 F L 91 12 123/74 H 100 12/04/17 07:41 12/04/17 07:41 12/04/17 07:41 12/04/17 07:41 12/04/17 07:41 Oxygen Delivery Method Room Air Weight: 99.246 kg Body Mass Index (BMI) 32.8 Intake and Output for Last 24 Hours 12/02/17 12/03/17 12/04/17 23:59 23:59 23:59 Intake Total 1365 / 1365 1540 / 1540 440 / 440 Balance 1365 / 1365 1540 / 1540 440 / 440 Active Medications Acetaminophen (Tylenol Liquid) 650 mg PO Q8H [facility] Last Admin: 12/04/17 06:11 Dose: 650 mg Albuterol/Ipratropium (Duoneb) 3 ml INHALATION Q4H PRN PRN PRN Reason: SHORTNESS OF BREATH Amlodipine Besylate (Norvasc) 10 mg PO DAILY [facility] Last Admin: 12/04/17 08:48 Dose: 10 mg Bisacodyl (Dulcolax) 10 mg RECTAL .PRN X 1 PRN PRN Reason: Constipation Chlorhexidine Gluconate (Peridex) 15 ml PO 4X/DAYCM [facility] Stop: 12/04/17 22:01 Last Admin: 12/04/17 08:44 Dose: 15 ml Diphenhydramine HCl (Benadryl Liquid) 12.5 mg PO TID PRN PRN PRN Reason: itching relief Last Admin: 11/30/17 21:32 Dose: 12.5 mg Emollient Ointment (Eucerin Intensive Repair) 1 applic TOPICAL 4X/DAY PRN PRN; Protocol PRN Reason: dryness/itching Last Admin: 11/29/17 20:35 Dose: 1 applicatio Enoxaparin Sodium (Lovenox) 40 mg SC DAILY@0600 [facility] Last Admin: 12/04/17 06:12 Dose: 40 mg Fentanyl (Duragesic Patch) 50 mcg TRANSDERM. Q72H [facility] Last Admin: 12/01/17 13:03 Dose: 50 mcg Ferrous Sulfate ([facility]) [facility] Last Admin: 12/04/17 08:46 Dose: 300 mg Gabapentin (Neurontin) 100 mg PO TID [facility] Last Admin: 12/04/17 06:12 Dose: 100 mg Lisinopril (Zestril) 40 mg PO DAILY [facility] Last Admin: 12/04/17 08:47 Dose: 40 mg Magnesium Hydroxide (Milk Of Magnesia) 30 ml PO .PRN X 1 PRN PRN Reason: Constipation Methocarbamol (Robaxin) 1,000 mg PO 4X/DAY [facility] Last Admin: 12/04/17 08:48 Dose: 1,000 mg Nutritional Formula (Segundo - [place] Flavor) 1 packet PO BIDCM [facility] Last Admin: 12/04/17 08:44 Dose: 1 packet Nutritional Formula (Lactose Free) (Ensure Clear) 120 ml PO 4X/DAY [facility] Last Admin: 12/04/17 08:44 Dose: 120 ml Oxycodone HCl (Oxyir) 5 - 10 mg PO Q4H PRN PRN PRN Reason: SEVERE PAIN (6-10/10) Last Admin: 12/04/17 04:14 Dose: 10 mg Senna/Docusate Sodium (Senokot-S, Kim-Colace) 2 tablet PO BID [facility] Last Admin: 12/04/17 08:48 Dose: 1 tablet Medical Necessity - Tobacco Use Smoking Status: Former smoker Tobacco Use: Cigarettes Assessment/Plan Debility status post multiple fractures and surgical repair. Goal of rehab is worship of prior level of functional independence. Plan: - Physical therapy for gait and balance - Occupational Therapy for ADLs - As needed analgesics - Bowel protocol - DVT prophylaxis: Lovenox - HTN - stable => continue home medications of lisinopril and Norvasc - B/L Incision sites => C/D/I, => healing nicely, alexus intact, no drainage noted, no redness or warmth noted around incision areas. Scheduled to follow-up with Dr. Cortés from orthopedics this week on Saturday. - Jaw wired closed => wire cutters at bedside, Peridex QID, diet up grade to pureed liquid diet, with thin liquids. - Tobacco dependence counseled on cessation, offered nicotine patch for tobacco cravings -> patient refused - Muscle spasms and cramping -> continue GPN, and Robaxin - Wound healing -> start Segundo with meals - Obesity, BMI is 32.1, encourage weight loss - Make appointments with Plastic surgery concerning wired jaw 11/26/17: Scheduled follow-up with plastics on the of this month. - Alexus and Sutures were removed from all incision sites this pass Saturday => areas are well approximated - Plan is for discharge on SaturdayDecember 07, with Home physical therapy and Occupational therapy - has done shared care with Physical and Occupational therapy earlier this week, scheduled to work with Nursing staff on Saturday afternoon.
--- NOTE | 2017-12-04 10:28 | PN.NEURO_ITS ---
Subjective: Patient seen during therapy session. No acute events over night. Tolerating therapy. Denies any shortness of breath, or chest pains. Multiple Incision sites are C/D/I, well approximated and healing nicely. His mouth is still wired closed, tolerating liquid diet, no issues with . - Physical Exam General: Alert, Oriented x3, Cooperative HEENT: Atraumatic, PERRLA, EOMI, Normocephalic Neck: Supple, No JVD, Negative Carotid Bruits Lungs: Clear to auscultation, Normal air movement Cardiovascular: Regular rate, No murmurs Abdomen: Bowel Sounds Present, Soft, Non Tender Extremities: No edema, Capillary Refill Less than 3 Seconds Skin: No rashes, No breakdown Musculoskeletal: No Tenderness to Palpation of Joints or Extremities Neurological: Cranial nerves II-XII grossly intact Psych/Mental Status: Normal Affect, Appropriate, Alert and oriented to time, place, person, mood and affect Vital Signs Temp Pulse Resp BP Pulse Ox 97.5 F L 91 12 123/74 H 100 12/04/17 07:41 12/04/17 07:41 12/04/17 07:41 12/04/17 07:41 12/04/17 07:41 Oxygen Delivery Method Room Air Weight: 99.246 kg Body Mass Index (BMI) 32.8 Intake and Output for Last 24 Hours 12/02/17 12/03/17 12/04/17 23:59 23:59 23:59 Intake Total 1365 / 1365 1540 / 1540 440 / 440 Balance 1365 / 1365 1540 / 1540 440 / 440 Active Medications Acetaminophen (Tylenol Liquid) 650 mg PO Q8H [facility] Last Admin: 12/04/17 06:11 Dose: 650 mg Albuterol/Ipratropium (Duoneb) 3 ml INHALATION Q4H PRN PRN PRN Reason: SHORTNESS OF BREATH Amlodipine Besylate (Norvasc) 10 mg PO DAILY [facility] Last Admin: 12/04/17 08:48 Dose: 10 mg Bisacodyl (Dulcolax) 10 mg RECTAL .PRN X 1 PRN PRN Reason: Constipation Chlorhexidine Gluconate (Peridex) 15 ml PO 4X/DAYCM [facility] Stop: 12/04/17 22:01 Last Admin: 12/04/17 08:44 Dose: 15 ml Diphenhydramine HCl (Benadryl Liquid) 12.5 mg PO TID PRN PRN PRN Reason: itching relief Last Admin: 11/30/17 21:32 Dose: 12.5 mg Emollient Ointment (Eucerin Intensive Repair) 1 applic TOPICAL 4X/DAY PRN PRN; Protocol PRN Reason: dryness/itching Last Admin: 11/29/17 20:35 Dose: 1 applicatio Enoxaparin Sodium (Lovenox) 40 mg SC DAILY@0600 [facility] Last Admin: 12/04/17 06:12 Dose: 40 mg Fentanyl (Duragesic Patch) 50 mcg TRANSDERM. Q72H [facility] Last Admin: 12/01/17 13:03 Dose: 50 mcg Ferrous Sulfate ([facility]) [facility] Last Admin: 12/04/17 08:46 Dose: 300 mg Gabapentin (Neurontin) 100 mg PO TID [facility] Last Admin: 12/04/17 06:12 Dose: 100 mg Lisinopril (Zestril) 40 mg PO DAILY [facility] Last Admin: 12/04/17 08:47 Dose: 40 mg Magnesium Hydroxide (Milk Of Magnesia) 30 ml PO .PRN X 1 PRN PRN Reason: Constipation Methocarbamol (Robaxin) 1,000 mg PO 4X/DAY [facility] Last Admin: 12/04/17 08:48 Dose: 1,000 mg Nutritional Formula (Segundo - [place] Flavor) 1 packet PO BIDCM [facility] Last Admin: 12/04/17 08:44 Dose: 1 packet Nutritional Formula (Lactose Free) (Ensure Clear) 120 ml PO 4X/DAY [facility] Last Admin: 12/04/17 08:44 Dose: 120 ml Oxycodone HCl (Oxyir) 5 - 10 mg PO Q4H PRN PRN PRN Reason: SEVERE PAIN (6-10/10) Last Admin: 12/04/17 04:14 Dose: 10 mg Senna/Docusate Sodium (Senokot-S, Kim-Colace) 2 tablet PO BID [facility] Last Admin: 12/04/17 08:48 Dose: 1 tablet Medical Necessity - Tobacco Use Smoking Status: Former smoker Tobacco Use: Cigarettes Assessment/Plan Debility status post multiple fractures and surgical repair. Goal of rehab is sikhism of prior level of functional independence. Plan: - Physical therapy for gait and balance - Occupational Therapy for ADLs - As needed analgesics - Bowel protocol - DVT prophylaxis: Lovenox - HTN - stable => continue home medications of lisinopril and Norvasc - B/L Incision sites => C/D/I, => healing nicely, alexus intact, no drainage noted, no redness or warmth noted around incision areas. Scheduled to follow- up with Dr. Cortés from orthopedics this week on Saturday. - Jaw wired closed => wire cutters at bedside, Peridex QID, diet up grade to pureed liquid diet, with thin liquids. - Tobacco dependence counseled on cessation, offered nicotine patch for tobacco cravings -> patient refused - Muscle spasms and cramping -> continue GPN, and Robaxin - Wound healing -> start Segundo with meals - Obesity, BMI is 32.1, encourage weight loss - Make appointments with Plastic surgery concerning wired jaw 11/26/17: Scheduled follow-up with plastics on the of this month. - [place] and Sutures were removed from all incision sites this pass Saturday => areas are well approximated - Plan is for discharge on SaturdayDecember 07, with Home physical therapy and Occupational therapy - has done shared care with Physical and Occupational therapy earlier this week, scheduled to work with Nursing staff on Saturday afternoon.
--- NOTE | 2017-12-04 13:56 | NURSING ---
Spoke to Yuki at [facility] and canceled transportation for 12/11/17 d/t pt. discharging home.
[2017-12-04 19:47] VITALS: BP 101/57; PULSE 103; RESP 16; TEMP 36.9; O2SAT 98
[2017-12-04 22:00] VITALS: RESP 17
[2017-12-04] MEDS: DiphenhydrAMINE 12.5 MG/5 ML UDC PO (23:32)
[2017-12-05] MEDS: Enoxaparin 40 MG/0.4 ML Syringe SC (06:34)
[2017-12-05] MEDS: Acetaminophen 650 MG/20 ML UDC PO ×3 (06:34→22:20)
[2017-12-05] MEDS: Gabapentin 100 MG Capsule PO ×3 (06:34→22:20)
[2017-12-05 08:17] VITALS: BP 117/71; PULSE 94; RESP 18; TEMP 36.4; O2SAT 94
[2017-12-05] MEDS: amLODIPine 10 MG Tablet PO (08:43)
[2017-12-05] MEDS: Lisinopril 40 MG Tablet PO (08:43)
[2017-12-05] MEDS: Methocarbamol 500 MG Tablet 1000 MG PO ×4 (08:43→22:19)
[2017-12-05] MEDS: Senna/Docusate Sodium 1 Tablet 2 TABLET PO ×2 (08:43→22:19)
[2017-12-05] MEDS: Ferrous Sulfate 300 MG/5 ML UDC PO ×2 (08:44→17:18)
--- NOTE | 2017-12-05 11:22 | CASEMGMT ---
Insurance Clinical information faxed. Pending continued stay approval. Auth#[id number] Adelaida JUNIOR, WOOD TURNER
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
[2017-12-05] MEDS: BACITRACIN 15 GM Tube 1 APPLIC TOPICAL ×2 (14:24→22:20)
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
--- NOTE | 2017-12-05 15:25 | CHAPLAIN ---
Type of Pastoral Visit ___ Initial Visit _x__ Follow-up Visit ___ On-call Visit ___ General Patient Visit ___ Spiritual Assessment ___ Family Conference ___ Bereavement ___ Rapid Response ___ Code Blue ___ Other (describe below) Pastoral Care Referral From _x__ Patient ___ Family ___ Nurse ___ Physician ___ Precinct Commanding Officer ___ Grout Worker ___ Other (describe below) Sacrament/Intervention _x__ Active listening ___ Anointing ___ Lutheran ___ Bereavement ___ Communion ___ Melissa exploration ___ ___ Life review ___ Prayer ___ Reconciliation ___ Sacrament of Sick _x__ Supportive presence ___ Wedding ___ Other (describe below) Pastoral Comments
[2017-12-05] MEDS: Chlorhexidine 480 ML 15 ML PO (18:33)
[2017-12-05 19:31] VITALS: BP 122/55; PULSE 93; RESP 16; TEMP 36.7; O2SAT 99
[2017-12-05] MEDS: oxyCODONE 5 MG Tablet PO (20:02)
[2017-12-05] MEDS: DiphenhydrAMINE 12.5 MG/5 ML UDC PO (22:38)
[2017-12-06] MEDS: oxyCODONE 5 MG Tablet PO ×3 (02:59→16:09)
[2017-12-06] MEDS: Acetaminophen 650 MG/20 ML UDC PO ×3 (06:21→20:29)
[2017-12-06] MEDS: Enoxaparin 40 MG/0.4 ML Syringe SC (06:22)
[2017-12-06] MEDS: Gabapentin 100 MG Capsule PO ×3 (06:22→20:30)
[2017-12-06] MEDS: Senna/Docusate Sodium 1 Tablet 2 TABLET PO ×2 (08:01→20:28)
[2017-12-06] MEDS: amLODIPine 10 MG Tablet PO (08:01)
[2017-12-06] MEDS: Lisinopril 40 MG Tablet PO (08:01)
[2017-12-06] MEDS: Ferrous Sulfate 300 MG/5 ML UDC PO ×2 (08:01→16:09)
[2017-12-06] MEDS: Chlorhexidine 480 ML 15 ML PO ×4 (08:04→20:30)
[2017-12-06] MEDS: BACITRACIN 15 GM Tube 1 APPLIC TOPICAL ×2 (08:22→20:31)
[2017-12-06 08:24] VITALS: BP 141/84; PULSE 86; RESP 17; TEMP 36.8; O2SAT 99
--- NOTE | 2017-12-06 10:37 | CASEMGMT ---
Insurance Continued stay approved with next update due on 12/10/17. Auth#[id number] Adelaida JUNIOR, ENDOSCOPY SPECIALTY TECHNICIAN
[2017-12-06] MEDS: Methocarbamol 500 MG Tablet 1000 MG PO ×4 (11:02→20:28)
--- NOTE | 2017-12-06 16:44 | PCM.DC ---
You will use the following diet at home:: Regular Your food should be the consistency of: Puree - liquid Discharge Activity: May Shower, - - Do not soak in a Tub bath until cleared by surgeon Weight Bearing Status: No weight bearing Call your doctor if your incision/area has: Increased Pain/ Swelling, Increased Redness, Foul Smelling Discharge, Swelling at the incision site Call your doctor if you observe: Fever of 101 or Higher, Coldness, Increased Pain, Numbness or Tingling, Change in Color, Inability to urinate, Inability to have a bowel movement, Using more than one pad per hour, Shortness of breath, Dizziness, Fainting spells, Swelling in the ankles, Chest pain, Prolonged hiccoughing, Increased palpitations (irregular heartbeat), Calf discomfort, Uncontrolled pain Allergies/Adverse Reactions: Allergies No Known Allergies Allergy (Verified 11/20/17 18:23) Medications to take at Discharge Ipratropium/Albuterol Sulfate [Duoneb] 3 ml INHALATION Q4H PRN PRN 11/20/17 Lisinopril [Zestril] 40 mg PO DAILY 11/20/17 Acetaminophen Liquid [Tylenol Liquid] 650 mg PO Q8H 30 Days #120 udc 12/06/17 Amlodipine [Norvasc] 10 mg PO DAILY #90 tab 12/06/17 Bacitracin Ointment 1 applic TOPICAL BID tube 12/06/17 Chlorhexidine 15 ml PO 4X/DAY 30 Days #120 ml 12/06/17 DiphenhydrAMINE Liquid [Benadryl Liquid] 12.5 mg PO TID PRN PRN 30 Days #1 bottle 12/06/17 Ferrous Sulfate Syrup 300 mg PO BIDCM 30 Days #60 udc 12/06/17 Gabapentin [Neurontin] 100 mg PO TID #90 cap 12/06/17 Methocarbamol [Robaxin] 1,000 mg PO 4X/DAY #120 tab 12/06/17 Nutritional Supplement [Segundo - ORANGE FLAVOR] 1 packet PO BIDCM #120 packet 12/06/17 Oxycodone [Oxyir] 5 - 10 mg PO Q4H PRN PRN 7 Days #40 tab 12/06/17 Senna/Docusate Sodium [Senokot-S] 2 tab PO BID #60 tab 12/06/17 fentaNYL patch [Duragesic patch] 50 mcg TRANSDERM. Q72H 7 Days #3 patch 12/06/17 The following prescriptions were given: Oxycodone [Oxyir] 5 - 10 mg PO Q4H PRN PRN 7 Days #40 tab PRN Reason: Severe Pain (-04/23) Acetaminophen Liquid [Tylenol Liquid] 650 mg PO Q8H 30 Days #120 udc Amlodipine [Norvasc] 10 mg PO DAILY #90 tab DiphenhydrAMINE Liquid [Benadryl Liquid] 12.5 mg PO TID PRN PRN 30 Days #1 bottle PRN Reason: itching relief fentaNYL patch [Duragesic patch] 50 mcg TRANSDERM. Q72H 7 Days #3 patch Ferrous Sulfate Syrup 300 mg PO BIDCM 30 Days #60 udc Nutritional Supplement [Segundo - ORANGE FLAVOR] 1 packet PO BIDCM #120 packet Senna/Docusate Sodium [Senokot-S] 2 tab PO BID #60 tab Gabapentin [Neurontin] 100 mg PO TID #90 cap Chlorhexidine 15 ml PO 4X/DAY 30 Days #120 ml Methocarbamol [Robaxin] 1,000 mg PO 4X/DAY #120 tab Primary Care Physician: Yony Liu MD [Primary Care Provider] - Please Follow Up With: [facility] ([facility]) Please Follow Up With: Trauma Clinic Please Follow Up With: Dr. Arguelles Please Follow Up With: Meño Please Follow Up With: Chidi Please Follow Up With: Dr. Marroquin Proposed Discharge Date: 12/07/17
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
[2017-12-06 20:00] VITALS: BP 123/73; PULSE 88; RESP 16; TEMP 36.6; O2SAT 98
[2017-12-07] MEDS: oxyCODONE 5 MG Tablet PO ×2 (02:29→11:33)
[2017-12-07] MEDS: Enoxaparin 40 MG/0.4 ML Syringe SC (05:34)
[2017-12-07] MEDS: Acetaminophen 650 MG/20 ML UDC PO ×2 (05:34→13:04)
[2017-12-07] MEDS: Gabapentin 100 MG Capsule PO ×2 (05:40→13:05)
[2017-12-07 07:29] VITALS: BP 120/73; PULSE 91; RESP 18; TEMP 36.6; O2SAT 98
[2017-12-07] MEDS: amLODIPine 10 MG Tablet PO (08:03)
[2017-12-07] MEDS: Methocarbamol 500 MG Tablet 1000 MG PO ×2 (08:03→13:05)
[2017-12-07] MEDS: Ferrous Sulfate 300 MG/5 ML UDC PO (08:03)
[2017-12-07] MEDS: Lisinopril 40 MG Tablet PO (08:04)
[2017-12-07] MEDS: Senna/Docusate Sodium 1 Tablet 2 TABLET PO (08:04)
[2017-12-07] MEDS: Chlorhexidine 480 ML 15 ML PO ×2 (08:04→11:18)
[2017-12-07] MEDS: BACITRACIN 15 GM Tube 1 APPLIC TOPICAL (08:06)
--- NOTE | 2017-12-07 13:47 | NURSING ---
patient and spouse verbalized understanding of discharge instructions. denies any further questions or concerns. patient discharged home with spouse.
--- NOTE | 2017-12-07 14:56 | CASEMGMT ---
Insurance Notified insurance of patient discharge on 12/07/17 to home with spouse and home health services. Auth#[id number] Adelaida JUNIOR, [employer] REP
== END 2017-12-07 13:50 | disposition home health service (06) | DRG 561 ==
PROVIDERS: Nurse Practitioner Acute Care; Admitting Provider Psychiatry & Neurology Neurology; Family Provider Family Medicine; PCP Family Medicine; Visit Provider Student in an Organized Health Care Education/Training Program
DX: S72.301D Unspecified fracture of shaft of right femur, subsequent encounter for closed fracture with routine healing (principal); S82.141D Displaced bicondylar fracture of right tibia, subsequent encounter for closed fracture with routine healing; S72.001D Fracture of unspecified part of neck of right femur, subsequent encounter for closed fracture with routine healing; S82.202D Unspecified fracture of shaft of left tibia, subsequent encounter for closed fracture with routine healing; S02.609D Fracture of mandible, unspecified, subsequent encounter for fracture with routine healing; S42.92XD Fracture of left shoulder girdle, part unspecified, subsequent encounter for fracture with routine healing; V49.9XXD Car occupant (driver) (passenger) injured in unspecified traffic accident, subsequent encounter; I10 Essential (primary) hypertension; S37.0 Injury of kidney; E66.9 Obesity, unspecified; Z68.32 Body mass index [BMI] 32.0-32.9, adult; Z71.3 Dietary counseling and surveillance; Z87.891 Personal history of nicotine dependence; D64.9 Anemia, unspecified; H60.90 Unspecified otitis externa, unspecified ear
CPT/HCPCS: 36415; 80048; 85027; 85048; 92606; 97110; 97162; 97167; 97530; 97535; 97802